=== PATIENT | female | born 1990 | race Asian ===

== ENCOUNTER → 2018-02-28 | Outpatient (CLI) | payer OTHER ==
[2018-03-02 14:13] LABS: QUANTIFERON GOLD TB Negative (Negative); TB Test (QFT) Antigen 0.09 IU/mL (.); TB Test (QFT) Antigen Minus Ni 0.02 IU/mL (.); TB Test (QFT) Mitogen 6.76 IU/mL (.); TB Test (QFT) Nil 0.07 IU/mL (.)
== END ==
LOC: M LAB 13:27
DX: R76.11 Nonspecific reaction to tuberculin skin test without active tuberculosis (principal)
CPT/HCPCS: 36415